=== PATIENT | female | born 1975 | race African-American/Black ===

== ENCOUNTER 2019-12-28 13:15 | Emergency (ER) | payer MEDICAID ==
[~2019-12-28] VITALS: Ht 167.6 cm; Wt 57.0 kg
[2019-12-28 15:46] LABS: BASOPHILS % 0.4 % (0.0-2.0); EOSINOPHILS % 0.3 % (0.0-5.0); HEMATOCRIT. 41.2 % (36.0-48.0); HEMOGLOBIN. 13.4 g/dL (12.0-16.0); LYMPHOCYTES % 25.7 % (20.0-50.0); MEAN CORPUSCULAR VOLUME 73.8 fL (81.0-99.0); NEUTROPHILS % 63.6 % (40.0-76.0); PLATELET 236 x1000/uL (130-400); RED BLOOD CELL COUNT 5.58 mill/uL (4.2-5.4); RED CELL DISTRIBUTION WIDTH 22.1 % (11.6-14.6)
[2019-12-28 15:53] LABS: CHLORIDE 102 mEq/L (98-107)
[2019-12-28 15:59] LABS: ETHANOL BLOOD < 10 mg/dL
[2019-12-28 16:29] LABS: CLARITY URINE CLEAR (CLEAR); COLOR URINE YELLOW (YELLOW); KETONES URINE 1+ (NEGATIVE); LEUKOCYTE ESTERASE URINE 2+ (NEGATIVE); NITRITE URINE NEGATIVE (NEGATIVE); OCCULT BLOOD URINE NEGATIVE (NEGATIVE); PROTEIN URINE NEGATIVE (NEGATIVE); UROBILINOGEN URINE 0.2 E.U./dL (0.2-1.0)
[2019-12-28 17:19] LABS: *AMPHETAMINES SCREEN URINE NEGATIVE (NEGATIVE); *BARBITURATES SCREEN URINE NEGATIVE (NEGATIVE); *BENZODIAZEPINES SCREEN URINE NEGATIVE (NEGATIVE)
[2019-12-28 17:20] LABS: *COCAINE SCREEN URINE NEGATIVE (NEGATIVE); CANNABINOID URINE SCREEN NEGATIVE (NEGATIVE); METHADONE URINE SCREEN NEGATIVE (NEGATIVE); OPIATES URINE SCREEN NEGATIVE (NEGATIVE); PHENCYCLIDINE URINE SCREEN NEGATIVE (NEGATIVE)
[2019-12-28] MEDS ORDERED: TRAZODONE HCL 50MG TABLET PO SCH (17:45)
[2019-12-28 19:53] LABS: PLATELET ESTIMATE NORMAL
[2019-12-28] MEDS: NITROFURANTOIN 100MG M/M CAPSULE PO SCH (22:05)
[2019-12-28] MEDS ORDERED: DIPHENHYDRAMINE 25MG CAPSULE PO ONE (22:45)
[2019-12-29] MEDS ORDERED: ACETAMINOPHEN 325MG TABLET PO ONE (01:30)
[2019-12-29] MEDS ORDERED: HYDROXYZINE 25MG TABLET PO ONE (01:30)
[2019-12-29] MEDS: NITROFURANTOIN 100MG M/M CAPSULE PO SCH ×2 (09:00→21:00)
[2019-12-30 03:33] VITALS: BP 137/94
== END 2019-12-30 03:45 ==
LOC: ER 13:29
DX: R45.851 Suicidal ideations (principal); Z20.828 Contact with and (suspected) exposure to other viral communicable diseases
CPT/HCPCS: 36415; 80053; 80305; 80307; 80320; 80329; 81003; 81025; 84484; 85025; 87635; 99285; C9803; Q0163; G0480